=== PATIENT | male | born 1985 | race African-American/Black ===

== ENCOUNTER 2023-12-03 13:50 | Outpatient (CLI) | payer OTHER ==
--- NOTE | 2023-12-03 19:47 | XRAY Report ---
PROCEDURE: Ribs w/PA Chest 3+V LT INDICATIONS: LEFT SIDED RIB PAIN TECHNIQUE: 3 views of the ribs were acquired, along with a single view chest. COMPARISON: None. FINDINGS: Surgical changes and devices: None. Bones and chest wall: No fractures or dislocations. No suspicious bony lesions. Overlying soft tis sues appear unremarkable. Lungs and pleura: No pleural effusions or pneumothorax. Lungs appear clear. Mediastinum: Mediastinal contours appear normal. Heart size is normal. IMPRESSION: No displaced rib fracture or pneumothorax. Reviewed by: Onelia Castillo MD on 12/03/2023 7:45 PM PDT Approved by: Onelia Castillo MD on 12/03/2023 7:45 PM PDT Station ID: [id number]
== END 2023-12-03 13:51 | disposition home or self-care (01) ==
LOC: DI 13:50
PROVIDERS: ATTEND Physician Assistant Medical
DX: R07.81 Pleurodynia (principal)